=== PATIENT | female | born 1955 | race African-American/Black ===

== ENCOUNTER 2023-03-09 16:58 | Emergency (ER) | payer MEDICARE ==
[2023-03-09 17:31] LABS: #Eosinphils 0.1 10x3/uL (0.0-0.5); #Monocytes 0.4 10x3/uL (0.0-1.1); #Neutrophils 4.2 10x3/uL (1.5-8.4); %Basophils 0.6 % (0.0-2.0); %Eosinophils 0.8 % (0.0-6.0); %Lymphocytes 29.8 % (18.0-47.0); %Monocytes 5.6 % (0.0-10.0); Hemoglobin 11.6 g/dL (12.0-15.5); Mean Corpuscular HGB CONC 31.4 g/dL (32.0-36.0); Mean Corpuscular Hemoglobin 29.4 pg (27.0-33.0); Mean Corpuscular Volume 93.7 fl (81.6-98.3); Mean Platelet Volume 10.6 fl (7.4-10.4); Platelet Count 341 10x3/uL (150-450); RBC Distribution Width 16.3 % (11.5-14.5); Red Blood Cell (RBC) Count 3.95 10x6/uL (3.90-5.03); White Blood Cell (WBC) Count 6.6 10x3/uL (3.5-10.5)
[2023-03-09 17:43] LABS: INR-International Normal Ratio 1.2; PTT 29.6 sec (22.0-33.0)
[2023-03-09 17:46] LABS: ALT (SGPT) 28 U/L (8-55); AST (SGOT) 27 U/L (5-34); Albumin 3.5 g/dL (3.4-4.8); Alkaline Phosphatase 75 U/L (40-110); Anion Gap 14 mmol/L (10-20); BUN (Urea Nitrogen) 25 mg/dL (9.8-20.1); Bilirubin, Total 0.4 mg/dL (0.2-1.2); Calc. Creatinine Clearance 0 mL/min (70-130); Calcium 8.8 mg/dL (7.8-10.44); Carbon Dioxide 26 mmol/L (23-31); Chloride 104 mmol/L (98-107); Estimated GFR 31; Globulin 3.6 g/dL (2.4-3.5); Glucose 112 mg/dL (80-115); Potassium 3.8 mmol/L (3.5-5.1); Protein, Total 7.1 g/dL (5.8-8.1); Sodium 140 mmol/L (136-145)
== END 2023-03-09 18:24 | disposition home or self-care (01) ==
LOC: CSHERS 16:58
DX: M79.661 Pain in right lower leg (principal); R60.0 Localized edema; E11.9 Type 2 diabetes mellitus without complications; E78.5 Hyperlipidemia, unspecified; I10 Essential (primary) hypertension; F17.210 Nicotine dependence, cigarettes, uncomplicated; F17.290 Nicotine dependence, other tobacco product, uncomplicated
CPT/HCPCS: 36415; 80053; 85025; 85610; 85730

== ENCOUNTER 2023-03-11 15:10 | Inpatient (IN) | payer MEDICARE ==
[2023-03-11] MEDS ORDERED: Ondansetron PF 4 MG/2 ML Vial IVP PRN (16:28)
[2023-03-11] MEDS ORDERED: Senokot S 8.6-50 MG TAB PO PRN (16:28)
[2023-03-11] MEDS ORDERED: Ondansetron ODT 4 MG TAB PO PRN (16:28)
[2023-03-11] MEDS ORDERED: Acetaminophen 325 MG TAB PO PRN (16:28)
[2023-03-11] MEDS ORDERED: Acetaminophen 650 MG Suppository PR PRN (16:28)
[2023-03-11] MEDS ORDERED: Guaifenesin DM 100-10/5 ML UDCUP PO PRN (16:28)
[2023-03-11 16:29] VITALS: BMI 23.6
[2023-03-11] MEDS ORDERED: FLU VACC QS2023(65UP)/MF59C/PF 60 MCG/0.5 ML SYRINGE IM ONE (17:15)
[2023-03-11] MEDS ORDERED: Bisacodyl 5 MG TAB PO PRN (21:16)
[2023-03-11] MEDS ORDERED: Calcium Carbonate 500 MG ChewTAB PO PRN (21:16)
[2023-03-11] MEDS ORDERED: Glucagon 1 MG/ML KIT IM PRN (21:28)
[2023-03-11] MEDS ORDERED: Dextrose 5% in Water 1,000 ML IV PRN (21:28)
[2023-03-11] MEDS ORDERED: HumaLOG 300 UNITS/3 ML VIAL SC PRN ×2 (21:28)
[2023-03-11] MEDS ORDERED: Dextrose 50% Abboject 50 ML SYRINGE SLOW IVP PRN (21:28)
[2023-03-11] MEDS ORDERED: diphenhydrAMINE 25 MG CAP PO PRN (21:30)
[2023-03-11] MEDS ORDERED: Moisturizing Cream (Eucerin) 113 GM JAR TOP PRN (21:30)
[2023-03-11] MEDS ORDERED: Labetalol HCl 100 MG/20 ML VIAL SLOW IVP PRN (21:30)
[2023-03-11] MEDS ORDERED: Artificial Tear Sol 15 ML BOT EA EYE PRN (21:30)
[2023-03-11] MEDS ORDERED: Atorvastatin Calcium 10 MG TAB PO SCH (22:15)
[2023-03-11] MEDS ORDERED: Electrolyte Replacement Protocol 1 EACH FS PRN (23:00)
[2023-03-11 23:24] LABS: Bilirubin Neg (Negative); Blood, Urine 10 (Negative); Clarity Clear (Clear); Glucose, Urine (Dipstick) Normal (Negative); Ketone, Urine Negative (Negative); Leukocyte 100 (Negative); Nitrite Negative (Negative); Protein, Urine (Dipstick) 100 mg/dl (Neg-Trace); Specific Gravity, Urine 1.015 (1.005-1.030)
[2023-03-11 23:39] LABS: RBC/HPF 0-3 HPF (0-3)
[2023-03-11 23:40] LABS: Bacteria/HPF Rare-Few HPF (None Seen)
[2023-03-12 04:59] LABS: #Eosinphils 0.1 10x3/uL (0.0-0.5); #Monocytes 0.3 10x3/uL (0.0-1.1); #Neutrophils 3.5 10x3/uL (1.5-8.4); %Basophils 0.5 % (0.0-2.0); %Lymphocytes 36.1 % (18.0-47.0); %Monocytes 4.9 % (0.0-10.0); %Neutrophils 57.3 % (40.0-75.0); Hematocrit 32.9 % (34.9-44.5); Hemoglobin 10.6 g/dL (12.0-15.5); Mean Corpuscular HGB CONC 32.2 g/dL (32.0-36.0); Mean Corpuscular Hemoglobin 29.9 pg (27.0-33.0); Mean Corpuscular Volume 92.7 fl (81.6-98.3); Mean Platelet Volume 10.7 fl (7.4-10.4); Platelet Count 320 10x3/uL (150-450); Red Blood Cell (RBC) Count 3.55 10x6/uL (3.90-5.03); White Blood Cell (WBC) Count 6.2 10x3/uL (3.5-10.5)
[2023-03-12 05:04] LABS: Phosphorus 3.3 mg/dL (2.3-4.7)
[2023-03-12 05:11] LABS: ALT (SGPT) 23 U/L (8-55); AST (SGOT) 14 U/L (5-34); Albumin 3.1 g/dL (3.4-4.8); Alkaline Phosphatase 60 U/L (40-110); Anion Gap 13 mmol/L (10-20); BUN (Urea Nitrogen) 26 mg/dL (9.8-20.1); Bilirubin, Total 0.4 mg/dL (0.2-1.2); Calc. Creatinine Clearance 32 mL/min (70-130); Calcium 8.4 mg/dL (7.8-10.44); Carbon Dioxide 27 mmol/L (23-31); Cardiac Risk 2.8 (Less than 4.5); Chloride 105 mmol/L (98-107); Cholesterol 96 mg/dl (< 200 Desired); Estimated GFR 32; Globulin 3.7 g/dL (2.4-3.5); Glucose 104 mg/dL (80-115); HDL Cholesterol 34 mg/dL (>60 Neg Risk); LDL Cholesterol, Calculated 50 mg/dL; Magnesium 1.4 mg/dL (1.6-2.6); Potassium 3.6 mmol/L (3.5-5.1); Protein, Total 6.8 g/dL (5.8-8.1); Sodium 141 mmol/L (136-145); Triglycerides 61 mg/dL (Less than 150)
[2023-03-12] MEDS: Furosemide 40 MG (4 mL) VIAL SLOW IVP SCH ×2 (06:05→14:47)
[2023-03-12] MEDS: Magnesium 2 GM/50 ML(in water) 2 GM in Premix 1 BAG IVPB SCH ×2 (07:57→09:56)
[2023-03-12] MEDS: Hydrochlorothiazide 25 MG TAB PO SCH ×2 (07:57→07:58)
[2023-03-12] MEDS: Carvedilol 12.5 MG TAB PO SCH ×2 (07:59→16:19)
[2023-03-12] MEDS: Enoxaparin 40 MG (0.4 mL) SYRINGE SC SCH (07:59)
[2023-03-12 13:17] LABS: Hemoglobin A1c 5.9 % (4.0-6.0)
[2023-03-12] MEDS ORDERED: Atorvastatin Calcium 10 MG TAB PO SCH (21:00)
[2023-03-12] MEDS: hydrALAZINE 20 MG/ML VIAL SLOW IVP PRN (21:56)
[2023-03-13] MEDS: ALPRAZolam 0.25 MG TAB PO PRN (01:16)
[2023-03-13] MEDS: Furosemide 40 MG (4 mL) VIAL SLOW IVP SCH ×2 (05:17→16:08)
[2023-03-13] MEDS: Carvedilol 12.5 MG TAB PO SCH ×2 (07:23→16:08)
[2023-03-13 07:34] LABS: #Basophils 0.1 10x3/uL (0.0-0.2); #Eosinphils 0.1 10x3/uL (0.0-0.5); #Monocytes 0.6 10x3/uL (0.0-1.1); #Neutrophils 3.9 10x3/uL (1.5-8.4); %Basophils 0.8 % (0.0-2.0); %Eosinophils 1.2 % (0.0-6.0); %Lymphocytes 29.7 % (18.0-47.0); %Monocytes 8.6 % (0.0-10.0); %Neutrophils 59.4 % (40.0-75.0); Hematocrit 35.8 % (34.9-44.5); Hemoglobin 11.7 g/dL (12.0-15.5); Mean Corpuscular HGB CONC 32.7 g/dL (32.0-36.0); Mean Corpuscular Hemoglobin 29.5 pg (27.0-33.0); Mean Corpuscular Volume 90.2 fl (81.6-98.3); Mean Platelet Volume 10.9 fl (7.4-10.4); Platelet Count 371 10x3/uL (150-450); RBC Distribution Width 15.9 % (11.5-14.5); Red Blood Cell (RBC) Count 3.97 10x6/uL (3.90-5.03); White Blood Cell (WBC) Count 6.5 10x3/uL (3.5-10.5)
[2023-03-13 08:45] LABS: Anion Gap 15 mmol/L (10-20); BUN (Urea Nitrogen) 25 mg/dL (9.8-20.1); Calc. Creatinine Clearance 31 mL/min (70-130); Calcium 9.5 mg/dL (7.8-10.44); Carbon Dioxide 28 mmol/L (23-31); Chloride 100 mmol/L (98-107); Estimated GFR 33; Glucose 127 mg/dL (80-115); Magnesium 1.9 mg/dL (1.6-2.6); Potassium 3.3 mmol/L (3.5-5.1); Sodium 140 mmol/L (136-145)
[2023-03-13] MEDS: Enoxaparin 40 MG (0.4 mL) SYRINGE SC SCH (09:32)
[2023-03-13] MEDS ORDERED: Sacubitril 24MG/Valsartan 26 MG TAB PO SCH (11:00)
[2023-03-13] MEDS ORDERED: Magnesium 2 GM/50 ML(in water) 2 GM in Premix 1 BAG IVPB SCH (12:00)
[2023-03-13] MEDS ORDERED: Potassium Chloride 20 MEQ TAB PO SCH (12:00)
[2023-03-13 17:36] LABS: Potassium 3.7 mmol/L (3.5-5.1)
[2023-03-13] MEDS: Atorvastatin Calcium 40 MG TAB PO SCH (21:10)
[2023-03-13] MEDS: Sacubitril 24MG/Valsartan 26 MG TAB PO SCH (21:10)
[2023-03-14] MEDS: hydrALAZINE 20 MG/ML VIAL SLOW IVP PRN (03:49)
[2023-03-14] MEDS: Furosemide 40 MG (4 mL) VIAL SLOW IVP SCH (05:11)
[2023-03-14] MEDS: Sacubitril 24MG/Valsartan 26 MG TAB PO SCH (06:01)
[2023-03-14 06:11] LABS: Anion Gap 15 mmol/L (10-20); BUN (Urea Nitrogen) 27 mg/dL (9.8-20.1); Calc. Creatinine Clearance 29 mL/min (70-130); Calcium 9.7 mg/dL (7.8-10.44); Carbon Dioxide 29 mmol/L (23-31); Chloride 98 mmol/L (98-107); Estimated GFR 32; Glucose 123 mg/dL (80-115); Potassium 3.7 mmol/L (3.5-5.1); Sodium 138 mmol/L (136-145)
[2023-03-14 06:12] LABS: Magnesium 1.9 mg/dL (1.6-2.6)
[2023-03-14 07:07] LABS: #Basophils 0.1 10x3/uL (0.0-0.2); #Eosinphils 0.1 10x3/uL (0.0-0.5); #Monocytes 0.5 10x3/uL (0.0-1.1); #Neutrophils 3.4 10x3/uL (1.5-8.4); %Basophils 0.8 % (0.0-2.0); %Eosinophils 1.9 % (0.0-6.0); %Monocytes 7.7 % (0.0-10.0); %Neutrophils 56.4 % (40.0-75.0); Hematocrit 42.2 % (34.9-44.5); Hemoglobin 13.9 g/dL (12.0-15.5); Mean Corpuscular HGB CONC 32.9 g/dL (32.0-36.0); Mean Corpuscular Hemoglobin 29.8 pg (27.0-33.0); Mean Corpuscular Volume 90.6 fl (81.6-98.3); Mean Platelet Volume 11.2 fl (7.4-10.4); Platelet Count 367 10x3/uL (150-450); RBC Distribution Width 15.7 % (11.5-14.5); Red Blood Cell (RBC) Count 4.66 10x6/uL (3.90-5.03); White Blood Cell (WBC) Count 5.9 10x3/uL (3.5-10.5)
[2023-03-14] MEDS: Enoxaparin 30 MG (0.3 mL) SYRINGE SC SCH (08:59)
[2023-03-14] MEDS: Carvedilol 12.5 MG TAB PO SCH ×2 (09:00→16:06)
[2023-03-14] MEDS ORDERED: Magnesium 2 GM/50 ML(in water) 2 GM in Premix 1 BAG IVPB SCH (09:00)
[2023-03-14] MEDS ORDERED: Isosorbide Mononitrate 30 MG ER.TAB PO SCH (10:00)
[2023-03-14] MEDS: hydrALAZINE 25 MG TAB PO SCH ×2 (16:06→21:38)
[2023-03-14] MEDS: Sacubitril 49 MG/Valsartan 51 MG TABLET PO SCH (21:29)
[2023-03-14] MEDS: Atorvastatin Calcium 40 MG TAB PO SCH (21:29)
[2023-03-14] MEDS: ALPRAZolam 0.25 MG TAB PO PRN (23:16)
[2023-03-15 05:22] LABS: #Eosinphils 0.1 10x3/uL (0.0-0.5); #Monocytes 0.6 10x3/uL (0.0-1.1); #Neutrophils 2.9 10x3/uL (1.5-8.4); %Basophils 0.7 % (0.0-2.0); %Eosinophils 1.4 % (0.0-6.0); %Lymphocytes 36.7 % (18.0-47.0); %Monocytes 10.2 % (0.0-10.0); %Neutrophils 50.8 % (40.0-75.0); Hematocrit 36.2 % (34.9-44.5); Hemoglobin 11.8 g/dL (12.0-15.5); Mean Corpuscular HGB CONC 32.6 g/dL (32.0-36.0); Mean Corpuscular Hemoglobin 29.1 pg (27.0-33.0); Mean Corpuscular Volume 89.4 fl (81.6-98.3); Mean Platelet Volume 10.7 fl (7.4-10.4); Platelet Count 340 10x3/uL (150-450); RBC Distribution Width 15.7 % (11.5-14.5); Red Blood Cell (RBC) Count 4.05 10x6/uL (3.90-5.03); White Blood Cell (WBC) Count 5.7 10x3/uL (3.5-10.5)
[2023-03-15 05:46] LABS: Anion Gap 17 mmol/L (10-20); BUN (Urea Nitrogen) 29 mg/dL (9.8-20.1); Calc. Creatinine Clearance 30 mL/min (70-130); Calcium 8.9 mg/dL (7.8-10.44); Carbon Dioxide 24 mmol/L (23-31); Chloride 100 mmol/L (98-107); Estimated GFR 33; Glucose 106 mg/dL (80-115); Magnesium 2.2 mg/dL (1.6-2.6); Potassium 3.3 mmol/L (3.5-5.1); Sodium 138 mmol/L (136-145)
[2023-03-15] MEDS ORDERED: Potassium Chloride 20 MEQ TAB PO SCH (08:00)
[2023-03-15] MEDS: Sacubitril 49 MG/Valsartan 51 MG TABLET PO SCH ×2 (08:53→21:33)
[2023-03-15] MEDS: Enoxaparin 30 MG (0.3 mL) SYRINGE SC SCH (08:53)
[2023-03-15] MEDS: Potassium Bicarbonate/Cit Ac 20 MEQ TAB PO SCH ×2 (08:53→13:30)
[2023-03-15] MEDS: hydrALAZINE 25 MG TAB PO SCH ×3 (08:54→21:35)
[2023-03-15] MEDS: Carvedilol 12.5 MG TAB PO SCH ×2 (08:54→17:43)
[2023-03-15] MEDS: Isosorbide Mononitrate 30 MG ER.TAB PO SCH (08:54)
[2023-03-15] MEDS ORDERED: Furosemide 40 MG (4 mL) VIAL SLOW IVP SCH (09:00)
[2023-03-15] MEDS ORDERED: Communication Order-Pharmacy FS SCH (14:30)
[2023-03-15] MEDS: Atorvastatin Calcium 40 MG TAB PO SCH (21:33)
[2023-03-15] MEDS: ALPRAZolam 0.25 MG TAB PO PRN (21:33)
[2023-03-16] MEDS: hydrALAZINE 25 MG TAB PO SCH ×3 (00:35→20:14)
[2023-03-16 05:53] LABS: #Eosinphils 0.1 10x3/uL (0.0-0.5); #Monocytes 0.7 10x3/uL (0.0-1.1); #Neutrophils 3.1 10x3/uL (1.5-8.4); %Basophils 0.5 % (0.0-2.0); %Eosinophils 1.5 % (0.0-6.0); %Lymphocytes 38.4 % (18.0-47.0); %Neutrophils 48.4 % (40.0-75.0); Anion Gap 15 mmol/L (10-20); BUN (Urea Nitrogen) 32 mg/dL (9.8-20.1); Calc. Creatinine Clearance 27 mL/min (70-130); Carbon Dioxide 26 mmol/L (23-31); Chloride 102 mmol/L (98-107); Estimated GFR 30; Glucose 121 mg/dL (80-115); Hematocrit 37.2 % (34.9-44.5); Hemoglobin 12.2 g/dL (12.0-15.5); Mean Corpuscular HGB CONC 32.8 g/dL (32.0-36.0); Mean Corpuscular Hemoglobin 29.7 pg (27.0-33.0); Mean Corpuscular Volume 90.5 fl (81.6-98.3); Mean Platelet Volume 10.9 fl (7.4-10.4); Platelet Count 329 10x3/uL (150-450); Potassium 4.4 mmol/L (3.5-5.1); RBC Distribution Width 15.6 % (11.5-14.5); Red Blood Cell (RBC) Count 4.11 10x6/uL (3.90-5.03); Sodium 139 mmol/L (136-145); White Blood Cell (WBC) Count 6.5 10x3/uL (3.5-10.5)
[2023-03-16] MEDS ORDERED: Nitroglycerin 50 MG/250 ML BOT 250 ML ONE (07:51)
[2023-03-16] MEDS ORDERED: Lidocaine 1% (PF) 30 ML VIAL ONE (07:51)
[2023-03-16] MEDS ORDERED: Heparin 10,000 UNITS/ 10 ML VIAL ONE (07:51)
[2023-03-16] MEDS ORDERED: Sodium Chloride 0.9% 1,000 ML IV SCH ×2 (08:00→15:15)
[2023-03-16] MEDS: Furosemide 40 MG TAB PO SCH (08:21)
[2023-03-16] MEDS: Isosorbide Mononitrate 30 MG ER.TAB PO SCH (08:21)
[2023-03-16] MEDS: Sacubitril 49 MG/Valsartan 51 MG TABLET PO SCH ×2 (08:21→20:14)
[2023-03-16] MEDS: Carvedilol 12.5 MG TAB PO SCH ×2 (08:21→17:18)
[2023-03-16] MEDS ORDERED: Iopamidol 300 61% 100 ML VIAL FS ONE (09:42)
[2023-03-16] MEDS: Sodium Chloride 0.45% 1,000 ML IV SCH (11:17)
[2023-03-16] MEDS ORDERED: Midazolam HCl 2 mg/2 ml Vial ONE (13:56)
[2023-03-16] MEDS ORDERED: fentaNYL 50 mcg/mL 1 mL Vial ONE (13:56)
[2023-03-16] MEDS ORDERED: Acetaminophen/Codeine 30-300mg Tablet PO PRN ×2 (15:01)
[2023-03-16] MEDS ORDERED: Nitroglycerin 0.4 MG TAB (25 Tab Bottle) SL PRN (15:01)
[2023-03-16] MEDS ORDERED: Sodium Chloride 0.9% 200 ML IV PRN (15:01)
[2023-03-16] MEDS: Atorvastatin Calcium 40 MG TAB PO SCH (20:14)
[2023-03-16] MEDS: ALPRAZolam 0.25 MG TAB PO PRN (22:40)
[2023-03-17] MEDS: Sodium Chloride 0.45% 1,000 ML IV SCH ×2 (02:04→07:30)
[2023-03-17 06:10] LABS: #Basophils 0.1 10x3/uL (0.0-0.2); #Eosinphils 0.1 10x3/uL (0.0-0.5); #Monocytes 0.5 10x3/uL (0.0-1.1); #Neutrophils 2.9 10x3/uL (1.5-8.4); %Basophils 0.9 % (0.0-2.0); %Eosinophils 1.3 % (0.0-6.0); %Lymphocytes 33.7 % (18.0-47.0); %Monocytes 8.9 % (0.0-10.0); %Neutrophils 54.8 % (40.0-75.0); Hematocrit 37.5 % (34.9-44.5); Mean Corpuscular Hemoglobin 29.7 pg (27.0-33.0); Mean Corpuscular Volume 92.8 fl (81.6-98.3); Mean Platelet Volume 11.1 fl (7.4-10.4); Platelet Count 305 10x3/uL (150-450); RBC Distribution Width 15.7 % (11.5-14.5); Red Blood Cell (RBC) Count 4.04 10x6/uL (3.90-5.03); White Blood Cell (WBC) Count 5.4 10x3/uL (3.5-10.5)
[2023-03-17 06:12] LABS: Anion Gap 13 mmol/L (10-20); BUN (Urea Nitrogen) 31 mg/dL (9.8-20.1); Calc. Creatinine Clearance 32 mL/min (70-130); Calcium 8.8 mg/dL (7.8-10.44); Carbon Dioxide 24 mmol/L (23-31); Chloride 104 mmol/L (98-107); Estimated GFR 37; Glucose 117 mg/dL (80-115); Potassium 3.9 mmol/L (3.5-5.1); Sodium 137 mmol/L (136-145)
[2023-03-17] MEDS: Furosemide 40 MG TAB PO SCH (08:44)
[2023-03-17] MEDS: Sacubitril 49 MG/Valsartan 51 MG TABLET PO SCH (08:44)
[2023-03-17] MEDS: Carvedilol 12.5 MG TAB PO SCH ×2 (08:44→17:36)
[2023-03-17] MEDS: hydrALAZINE 25 MG TAB PO SCH (08:44)
[2023-03-17] MEDS: Isosorbide Mononitrate 30 MG ER.TAB PO SCH (08:44)
[2023-03-17] MEDS ORDERED: Magnesium 2 GM/50 ML(in water) 2 GM in Premix 1 BAG IVPB SCH (11:00)
[2023-03-17] MEDS ORDERED: Potassium Chloride 20 MEQ TAB PO SCH (11:00)
[2023-03-17 16:21] VITALS: BP 130/75; TEMP 98.6
== END 2023-03-17 18:10 | disposition home or self-care (01) | DRG 286 ==
LOC: CSHTELE 15:38
PROVIDERS: ADMIT Emergency Medicine; ATTEND Internal Medicine
PROC: 4A023N7 Measurement of Cardiac Sampling and Pressure, Left Heart, Percutaneous Approach (ICD-10-PCS; principal; 2023-03-16)
PROC: B2111ZZ Fluoroscopy of Multiple Coronary Arteries using Low Osmolar Contrast (ICD-10-PCS; 2023-03-16)
PROC: B2151ZZ Fluoroscopy of Left Heart using Low Osmolar Contrast (ICD-10-PCS; 2023-03-16)
DX: I13.0 Hypertensive heart and chronic kidney disease with heart failure and stage 1 through stage 4 chronic kidney disease, or unspecified chronic kidney disease (principal); I50.23 Acute on chronic systolic (congestive) heart failure; N17.9 Acute kidney failure, unspecified; E78.5 Hyperlipidemia, unspecified; N18.30 Chronic kidney disease, stage 3 unspecified; E11.22 Type 2 diabetes mellitus with diabetic chronic kidney disease; E88.09 Other disorders of plasma-protein metabolism, not elsewhere classified; D63.1 Anemia in chronic kidney disease; E87.6 Hypokalemia; E83.42 Hypomagnesemia; I25.10 Atherosclerotic heart disease of native coronary artery without angina pectoris; Z98.890 Other specified postprocedural states; Z90.410 Acquired total absence of pancreas; Z90.89 Acquired absence of other organs; Z88.8 Allergy status to other drugs, medicaments and biological substances; Z79.899 Other long term (current) drug therapy; Z79.84 Long term (current) use of oral hypoglycemic drugs
CPT/HCPCS: 36415; 36416; 76770; 80048; 80053; 80061; 81001; 83036; 83735; 83880; 84100; 85025; 93306; 93458; 93970; 94760; 99152; C1760; C1769; J0360; J1644; J1650; J1815; J1940; J2001; J2250; J3010; J3475; J7050; Q9967

== ENCOUNTER 2023-04-15 02:09 | Inpatient (IN) | payer MEDICARE ==
[2023-04-15 02:25] LABS: #Monocytes 0.7 10x3/uL (0.0-1.1); #Neutrophils 14.3 10x3/uL (1.5-8.4); %Basophils 0.2 % (0.0-2.0); %Eosinophils 0.2 % (0.0-6.0); %Monocytes 4.4 % (0.0-10.0); %Neutrophils 88.7 % (40.0-75.0); Hematocrit 38.4 % (34.9-44.5); Hemoglobin 12.2 g/dL (12.0-15.5); Mean Corpuscular HGB CONC 31.8 g/dL (32.0-36.0); Mean Corpuscular Hemoglobin 29.5 pg (27.0-33.0); Mean Corpuscular Volume 92.8 fl (81.6-98.3); Mean Platelet Volume 11.7 fl (7.4-10.4); Platelet Count 235 10x3/uL (150-450); Red Blood Cell (RBC) Count 4.14 10x6/uL (3.90-5.03); White Blood Cell (WBC) Count 16.1 10x3/uL (3.5-10.5)
[2023-04-15] MEDS ORDERED: niCARdipine 25 MG/10 ML SDV ONE (02:28)
[2023-04-15 02:40] LABS: ALT (SGPT) 17 U/L (8-55); AST (SGOT) 19 U/L (5-34); Albumin 3.8 g/dL (3.4-4.8); Alkaline Phosphatase 61 U/L (40-110); Anion Gap 14 mmol/L (10-20); BUN (Urea Nitrogen) 33 mg/dL (9.8-20.1); Bilirubin, Total 0.6 mg/dL (0.2-1.2); Calc. Creatinine Clearance 0 mL/min (70-130); Calcium 8.7 mg/dL (7.8-10.44); Carbon Dioxide 22 mmol/L (23-31); Chloride 104 mmol/L (98-107); Estimated GFR 33; Globulin 3.9 g/dL (2.4-3.5); Glucose 188 mg/dL (80-115); Protein, Total 7.7 g/dL (5.8-8.1); Sodium 136 mmol/L (136-145)
[2023-04-15 02:47] LABS: Troponin I 0.033 ng/mL (< 0.028)
[2023-04-15 02:49] LABS: Actual Bicarbonate (HCO3v) 21.7 mEq/L (22-28); Analyzer IN Cardio CS ER; Base Excess -3.5 mEq/L (-2 - +2); Calcium, Ionized (venous) 1.06 mmol/L (1.16-1.32); Chloride (VBG) 105 mmol/L (98-106); Critical Notified By: CP.PH; Hematocrit-VBG 39 % (36.0-47.0); Hemoglobin (Hb) 13.4 g/dL (11.7-16.1); Puncture Site Other Site; Sodium 137 mmol/L (133-146); pH (venous) 7.358 (7.32-7.43)
[2023-04-15] MEDS ORDERED: Furosemide 40 MG (4 mL) VIAL ONE (03:18)
[2023-04-15 03:21] LABS: SARS-CoV-2 NAA Rapid Test Not Detected (NotDetected)
[2023-04-15] MEDS ORDERED: HYDROcodone/Acetaminophen 5/325 mg Tablet PO PRN (03:27)
[2023-04-15] MEDS ORDERED: Glucagon 1 MG/ML KIT IM PRN (03:27)
[2023-04-15] MEDS ORDERED: Ondansetron PF 4 MG/2 ML Vial IVP PRN (03:27)
[2023-04-15] MEDS ORDERED: Dextrose 5% in Water 1,000 ML IV PRN (03:27)
[2023-04-15] MEDS ORDERED: Acetaminophen 325 MG TAB PO PRN (03:27)
[2023-04-15] MEDS ORDERED: Dextrose 50% Abboject 50 ML SYRINGE SLOW IVP PRN (03:27)
[2023-04-15] MEDS ORDERED: Senokot S 8.6-50 MG TAB PO PRN (03:27)
[2023-04-15] MEDS ORDERED: Calcium Carbonate 500 MG ChewTAB PO PRN (03:27)
[2023-04-15] MEDS ORDERED: HumaLOG 300 UNITS/3 ML VIAL SC PRN (03:28)
[2023-04-15] MEDS ORDERED: ALPRAZolam 0.5 MG TAB PO PRN (03:29)
[2023-04-15] MEDS ORDERED: niCARdipine 25 MG in Sodium Chloride 0.9% 250 ML 250 ML IVPB SCH (03:30)
[2023-04-15 04:04] VITALS: BMI 22.4
[2023-04-15 07:32] LABS: Troponin I 0.104 ng/mL (< 0.028)
[2023-04-15] MEDS: Alogliptin 6.25 MG TAB PO SCH (07:57)
[2023-04-15] MEDS: Enoxaparin 40 MG (0.4 mL) SYRINGE SC SCH (07:57)
[2023-04-15] MEDS: hydrALAZINE 25 MG TAB PO SCH ×3 (07:58→20:28)
[2023-04-15] MEDS ORDERED: FLU VACC QS2023(65UP)/MF59C/PF 60 MCG/0.5 ML SYRINGE IM ONE (09:00)
[2023-04-15] MEDS ORDERED: Carvedilol 12.5 MG TAB PO SCH ×2 (09:00→17:00)
[2023-04-15] MEDS ORDERED: Isosorbide Mononitrate 30 MG ER.TAB PO SCH (09:00)
[2023-04-15] MEDS: Sacubitril 49 MG/Valsartan 51 MG TABLET PO SCH ×2 (09:38→20:29)
[2023-04-15] MEDS: Guaifenesin DM 100-10/5 ML UDCUP PO PRN ×2 (14:52→20:43)
[2023-04-15] MEDS ORDERED: Furosemide 40 MG (4 mL) VIAL SLOW IVP SCH (15:00)
[2023-04-15] MEDS ORDERED: Atorvastatin Calcium 40 MG TAB PO SCH (21:00)
[2023-04-15] MEDS ORDERED: hydrALAZINE 20 MG/ML VIAL SLOW IVP PRN (22:08)
[2023-04-16 03:32] LABS: #Eosinphils 0.3 10x3/uL (0.0-0.5); #Monocytes 0.5 10x3/uL (0.0-1.1); %Basophils 0.2 % (0.0-2.0); %Lymphocytes 10.5 % (18.0-47.0); %Monocytes 6.1 % (0.0-10.0); %Neutrophils 79.7 % (40.0-75.0); Hematocrit 34.2 % (34.9-44.5); Hemoglobin 11.3 g/dL (12.0-15.5); Mean Corpuscular Hemoglobin 29.9 pg (27.0-33.0); Mean Corpuscular Volume 90.5 fl (81.6-98.3); Mean Platelet Volume 12.1 fl (7.4-10.4); Platelet Count 195 10x3/uL (150-450); RBC Distribution Width 15.9 % (11.5-14.5); Red Blood Cell (RBC) Count 3.78 10x6/uL (3.90-5.03); White Blood Cell (WBC) Count 8.8 10x3/uL (3.5-10.5)
[2023-04-16 03:40] LABS: Anion Gap 12 mmol/L (10-20); BUN (Urea Nitrogen) 32 mg/dL (9.8-20.1); Calc. Creatinine Clearance 37 mL/min (70-130); Calcium 8.8 mg/dL (7.8-10.44); Carbon Dioxide 25 mmol/L (23-31); Chloride 104 mmol/L (98-107); Estimated GFR 38; Glucose 113 mg/dL (80-115); Potassium 3.5 mmol/L (3.5-5.1); Sodium 137 mmol/L (136-145)
[2023-04-16 04:25] VITALS: TEMP 98.2
[2023-04-16] MEDS: Guaifenesin DM 100-10/5 ML UDCUP PO PRN ×2 (06:28→13:39)
[2023-04-16] MEDS ORDERED: Carvedilol 25 MG TAB PO SCH (08:00)
[2023-04-16] MEDS: Enoxaparin 40 MG (0.4 mL) SYRINGE SC SCH (08:41)
[2023-04-16] MEDS: hydrALAZINE 25 MG TAB PO SCH (08:41)
[2023-04-16] MEDS: Alogliptin 6.25 MG TAB PO SCH (08:42)
[2023-04-16] MEDS: Sacubitril 49 MG/Valsartan 51 MG TABLET PO SCH (08:42)
[2023-04-16 08:46] VITALS: BP 172/93
[2023-04-16] MEDS ORDERED: Isosorbide Mononitrate 60 MG ER.TAB PO SCH (09:00)
[2023-04-16] MEDS ORDERED: Potassium Chloride 20 MEQ TAB PO SCH (13:00)
[2023-04-16] MEDS ORDERED: Furosemide 20 MG TAB PO SCH (13:00)
== END 2023-04-16 15:56 | disposition home or self-care (01) | DRG 291 ==
LOC: CSHERS 02:09 → CSHICU 03:56
PROVIDERS: ADMIT Student in an Organized Health Care Education/Training Program; ATTEND Internal Medicine
PROC: 5A09357 Assistance with Respiratory Ventilation, Less than 24 Consecutive Hours, Continuous Positive Airway Pressure (ICD-10-PCS; principal; 2023-04-15)
DX: I13.0 Hypertensive heart and chronic kidney disease with heart failure and stage 1 through stage 4 chronic kidney disease, or unspecified chronic kidney disease (principal); I50.23 Acute on chronic systolic (congestive) heart failure; J96.01 Acute respiratory failure with hypoxia; I16.1 Hypertensive emergency; Z79.899 Other long term (current) drug therapy; E78.5 Hyperlipidemia, unspecified; F41.9 Anxiety disorder, unspecified; E11.22 Type 2 diabetes mellitus with diabetic chronic kidney disease; N18.30 Chronic kidney disease, stage 3 unspecified; F17.210 Nicotine dependence, cigarettes, uncomplicated; Z79.4 Long term (current) use of insulin; J06.9 Acute upper respiratory infection, unspecified; I25.10 Atherosclerotic heart disease of native coronary artery without angina pectoris; Z11.52 Encounter for screening for COVID-19
CPT/HCPCS: 36415; 36416; 71045; 80048; 80053; 82805; 83735; 83880; 84484; 85025; 93005; 93010; 94660; 94760; 94762; J1650; J1815; J1940; J7050

== ENCOUNTER 2023-09-28 12:20 | Outpatient (CLI) | payer MEDICARE | END 2023-09-28 12:21 | disposition home or self-care (01) | LOC: CSHCT 12:20 | PROVIDERS: ATTEND Otolaryngology Otolaryngic Allergy | DX: R59.0 Localized enlarged lymph nodes (principal); E04.2 Nontoxic multinodular goiter; D17.0 Benign lipomatous neoplasm of skin and subcutaneous tissue of head, face and neck | CPT/HCPCS: 70491; 82565 ==

== ENCOUNTER 2023-11-04 13:15 | Outpatient (CLI) | payer MEDICARE ==
[2023-11-04 13:57] LABS: Hematocrit 39.7 % (34.9-44.5); Hemoglobin 12.6 g/dL (12.0-15.5)
[2023-11-04 14:34] LABS: Anion Gap 12 mmol/L (10-20); BUN (Urea Nitrogen) 27 mg/dL (9.8-20.1); Calc. Creatinine Clearance 0 mL/min (70-130); Calcium 9.1 mg/dL (7.8-10.44); Carbon Dioxide 23 mmol/L (23-31); Chloride 107 mmol/L (98-107); Estimated GFR 23; Glucose 114 mg/dL (80-115); Sodium 138 mmol/L (136-145)
== END 2023-11-04 13:16 | disposition home or self-care (01) ==
LOC: CSHLAB 13:15
PROVIDERS: ATTEND Otolaryngology Otolaryngic Allergy
DX: Z01.818 Encounter for other preprocedural examination (principal); R22.1 Localized swelling, mass and lump, neck
CPT/HCPCS: 80048; 85014; 85018; 93005; 93010